=== PATIENT | male | born 1970 | race Two or more races ===

== ENCOUNTER 2025-06-09 10:31 | Emergency (ER) | payer OTHER ==
[~2025-06-09] VITALS: Ht 162.6 cm; Wt 61.2 kg
[2025-06-09] MEDS ORDERED: ONDANSETRON HCL/PF 4 MG/2 ML VIAL IVP ONE (11:00)
[2025-06-09] MEDS ORDERED: FAMOTIDINE/PF INJ 20 MG/2 ML VIAL IV ONE (11:00)
[2025-06-09] MEDS ORDERED: IV NS 0.9% 1,000 ML BAG IV ONE (11:00)
[2025-06-09 11:16] VITALS: BP 124/76; TEMP 98; O2SAT 97
== END 2025-06-09 11:18 | disposition left against medical advice (07) ==
LOC: ER 10:40
DX: R11.10 Vomiting, unspecified (principal); F17.200 Nicotine dependence, unspecified, uncomplicated; R07.89 Other chest pain